=== PATIENT | female | born 1975 | race Caucasian/White ===

== ENCOUNTER 2023-05-25 08:52 | Emergency (ER) | payer BC, SELFPAY ==
[2023-05-25 08:56] VITALS: BP 143/57
--- NOTE | 2023-05-25 09:24 | ED.GENMED ---
Addendum entered and electronically signed by Edgar Heredia PA-C 05/28/23 10:17:
Patient's wound culture grew moderate E. coli. Resistant to Bactrim which patient was prescribed. I contacted the patient and she still notes she is having significant discomfort and recurring swelling. I did send a new prescription for Augmentin
to patient's pharmacy. She did make a follow-up visit with TEMPLATE LAYOUT WORKER but this is not for another 2 weeks. I did advise patient that if symptoms are not improved or she has any other concerns she is always welcome to present back to the emergency
department.
Original Note:
History of Present Illness
<JOHNNY Stuart - Last Filed: 05/25/23 13:55>
General
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
Source: patient
Exam Limitations: none
Time Seen by Provider: 05/25/23 09:06
Nursing documentation reviewed up to this point in time: agreed with
Travel History
Have you had any contact with someone who has COVID-19?: No
Do you have any symptoms of coronavirus? Fever > 100 degrees, chills, cough, shortness of breath, sore throat, loss of taste or smell, muscle aches, or headache?: No
History of Present Illness
History of Present Illness:
Patient 48-year-old female with history of MS, htn, alcohol abuse presents to the ER for evaluation. Patient complains of painful lump to the right of her vagina for the past 3 days. She denies any abdominal pain she is mildly nauseous. She
reports that she is not from this area but presently staying in a recovery house here in [place]. She has been sexually active for the past 7 months not with her and does ask for STD testing. She complains of mild white discharge but
not sure if it is her normal discharge. She has never had an STD. Her last menstrual period was 3 months ago. She reports she is starting to have irregular periods with her age. She does report that she had a lump similar to this at 20 which
did require drainage.
Review of Systems
<JOHNNY Stuart - Last Filed: 05/25/23 13:55>
Review of Systems
Allergies reviewed?: Yes
All Other Systems: ROS reviewed and negative except as documented in HPI and ROS
Constitutional: Reports no symptoms; Denies fever, fatigue or chills
EENT: Reports no symptoms
Respiratory: Reports no symptoms
Cardiac: Reports no symptoms
ABD/GI: Reports no symptoms; Denies nausea or vomiting
: Reports other (Painful lump to the right upper vagina); Denies dysuria or frequency
Musculoskeletal: Reports no symptoms
Skin: Reports no symptoms
Neurological: Reports no symptoms
Phy Exam
<JOHNNY Stuart - Last Filed: 05/25/23 13:55>
General Physical Exam
General Presentation: no apparent distress
General age: appears stated age
General Skin: warm and dry
General Habitus: normal
General Mental: alert
General Hydration: appears well hydrated
Genitourinary Exam Female
Exam Female: other (+ tender palpable lump to outer right labia )
Neurological Exam
Neurological Exam: alert and oriented x3
Musculoskeletal Exam
Musculoskeletal Exam: full ROM
Skin Exam
Skin Exam: normal color and warm/dry
Psychiatric Exam
Psychiatric Exam: normal mood/affect
Course
<JOHNNY Stuart - Last Filed: 05/25/23 13:55>
Orders/Labs/Results
Orders:
Orders
05/25/23 09:24
Test Result ONCE
05/25/23 10:12
HCG, Urine Qualitative Screen Urgent
Date Specimen was Collected: 05/25/23
Time Specimen was Collected: 10:09
Chlamydia/GC by PCR Urgent
HADLEY Source: Urine
Specimen Description:
Source:: URETHRA
Date Specimen was Collected: 05/25/23
Time Specimen was Collected: 10:09
05/25/23 11:07
Sulfamethox./Trimethoprim Ds [Bactrim Ds 800 mg/160 mg] 1 tablet PO NOW STA
05/25/23 11:20
Wound Culture [Wound/Abscess/Other Culture] Urgent
HADLEY Source: Abscess
Specimen Description:
Date Specimen was Collected: 05/25/23
Time Specimen was Collected: 11:15
Comment: vaginal
Vital Signs
Initial and Last Documented VS:
Initial Vital Signs
Temp Pulse Resp BP Pulse Ox
98.0 F 110 16 143/57 98
05/25/23 08:56 05/25/23 08:56 05/25/23 08:56 05/25/23 08:56 05/25/23 08:56
Last Documented Vital Signs
Temp Pulse Resp BP Pulse Ox
98.0 F 110 16 143/57 98
05/25/23 08:56 05/25/23 08:56 05/25/23 08:56 05/25/23 08:56 05/25/23 08:56
Field Consultant consulted with Physician
Name of Physician Consulted: Vini
<Kenneth Martini, DO - Last Filed: 05/25/23 11:03>
Orders/Labs/Results
Orders:
Orders
05/25/23 09:24
Test Result ONCE
05/25/23 10:12
HCG, Urine Qualitative Screen Urgent
Date Specimen was Collected: 05/25/23
Time Specimen was Collected: 10:09
Chlamydia/GC by PCR Urgent
HADLEY Source: Urine
Specimen Description:
Source:: URETHRA
Date Specimen was Collected: 05/25/23
Time Specimen was Collected: 10:09
05/25/23 11:07
Sulfamethox./Trimethoprim Ds [Bactrim Ds 800 mg/160 mg] 1 tablet PO NOW STA
05/25/23 11:20
Wound Culture [Wound/Abscess/Other Culture] Urgent
HADLEY Source: Abscess
Specimen Description:
Date Specimen was Collected: 05/25/23
Time Specimen was Collected: 11:15
Comment: vaginal
Vital Signs
Initial and Last Documented VS:
Initial Vital Signs
Temp Pulse Resp BP Pulse Ox
98.0 F 110 16 143/57 98
05/25/23 08:56 05/25/23 08:56 05/25/23 08:56 05/25/23 08:56 05/25/23 08:56
Last Documented Vital Signs
Temp Pulse Resp BP Pulse Ox
98.0 F 110 16 143/57 98
05/25/23 08:56 05/25/23 08:56 05/25/23 08:56 05/25/23 08:56 05/25/23 08:56
Procedures
<JOHNNY Stuart - Last Filed: 05/25/23 13:55>
Other
Indication for procedure:: cyst/abscess to right lateral labial region
Consent form signed: Yes
Additional Procedure:
Betadine prep , area was anesthetized with lidocaine 1% without #11 blade scapel used to incise area no ovious drainage however #18 gauge needle aspiration used to withdrawl approx 15 cm of purulent drainage
<JOHNNY Stuart - Last Filed: 05/25/23 13:55>
MDM/Problems Addressed
Differential Diagnosis Includes:
not limited to: abscess, bartholins
MDM/Problems Addressed:
48 yr old female presenting to the ER with complaints of painful lump to vaginal area. As discussed area was incised however ED physician was able to use an 18-gauge needle was used to do aspiration of approximately 15 mL of purulent drainage.
Patient with relief. This was sent for culture. Patient also wanted STD testing. STD testing for GC chlamydia negative here in the ER she present lives in a recovery house here in [place].
Patient with negative hCG. Patient denies any fever chills afebrile. Patient has significant relief after drainage. Patient was given first dose of Bactrim here in the ER will DC with warm compresses sitz bath's Bactrim and close outpatient
follow with TEMPLATE LAYOUT WORKER
<JOHNNY Stuart - Last Filed: 05/25/23 13:55>
*Critical Care Note
Total Time (30-74mins, 75-104mins- exclusive of procedures): Not Applicable
ED Attending Note
<JOHNNY Stuart - Last Filed: 05/25/23 13:55>
-
Portions of this chart may have been created with voice recognition software.� Occasional wrong word or��sound alike� substitutions may have occurred due to the inherent limitations of voice recognition software.
<Kenneth Martini DO - Last Filed: 05/25/23 11:03>
ED Attending Note
Patient seen and examined by attending physician: Yes
I performed the substantive portion of visit, reviewed & personally made and approve the management plan that is documented in note by myself or ITA.: Yes
ED Attending Note:
Fluctuant mass to the right labia. Small incision made by ASSISTANT OPERATOR and then aspirated by me. 13 cc of pus withdrawn. Little bit of concern as I would like to fully open this but would take a deep vaginal incision. For now lets hope that warm
compresses, antibiotics and needle aspiration are sufficient. Will refer to gynecology for follow-up
Discharge Plan
Departure
Patient Disposition: Home (Routine Discharge)
Date of Disposition: 05/25/23
Time of Disposition: 12:46
Patient with high blood pressure during this ER visit?: Yes
Condition: Fair
Covid-19: Not Applicable
Discharge Problem:
Abscess
Instructions: Abscess Incision and Drainage (DC), BLOOD PRESSURE
Prescriptions:
New
sulfamethoxazole-trimethoprim [Bactrim DS] 800-160 mg tablet
1 tab PO BID Qty: 14 0RF
Referrals:
Sugey Guerrero MD [Active] -
UNKNOWN - PT DOES,NOT KNOW [Family Provider] -
Activity Restrictions/Additional Instructions:
Antibiotic as directed For the next 7 days.
Hot water soaks hot compresses to affected area several times a day. Follow-up with TEMPLATE LAYOUT WORKER in the next several days.
return if any worsening of symptoms.
Interventions
Interventions:
*Risk Screen - Suicide Last Done: 05/25/23 10:39
*General Assessment Last Done: 05/25/23 10:39
*Neglect/Abuse Screening Last Done: 05/25/23 10:39
ED- Fall Risk Assessment Last Done: 05/25/23 10:39
*ED COVID-19 Vaccine History Last Done: 05/25/23 08:56
*Nursing Disposition Last Done: 05/25/23 12:57
ED-Female Genitourinary Assessment Last Done: 05/25/23 10:39
Discharge Date and Time
Discharge Date/Time: 05/25/23 13:01
[2023-05-25 10:27] LABS: HCG, Urine Qualitative Screen Negative
[2023-05-25] MEDS: BACTRIM DS 800 MG/160 MG 1 TABLET PO (11:23)
== END 2023-05-25 13:01 | disposition home or self-care (01) ==
LOC: EMR 08:52
PROVIDERS: Nurse Practitioner; EMERGENCY PHYSICIAN Emergency Medicine
DX: N76.4 Abscess of vulva (principal)
CPT/HCPCS: 99283; 56405; 81025; 87070; 87077; 87186; 87205; 87491; 87591

== ENCOUNTER 2023-05-28 11:18 | Emergency (ER) | payer BC, SELFPAY ==
[2023-05-28 11:21] VITALS: BP 127/73
[2023-05-28 11:34] LABS: % Basophils 0.4 % (0-2); % Eosinophils 1.6 % (0-6); % Immature Granulocytes 0.3 % (0-0.5); % Lymphocytes 33.3 % (20.5-51.1); % Monocytes 9.4 % (1.7-9.3); Absolute Basophils 0.1 10^3/uL (0-0.2); Absolute Eosinophils 0.2 10^3/uL (0-0.7); Absolute Monocytes 1.1 10^3/uL (0.1-0.6); Absolute Neutrophils 6.6 10^3/uL (1.4-6.5); Hematocrit 42.1 % (37.0-47.0); Hemoglobin 14.5 g/dL (12.0-16.0); Mean Corp Hgb Conc. 34.4 g/dL (33.0-37.0); Mean Corpuscular Volume 84.2 fL (81.0-99.0); Mean Platelet Volume 9.2 fL (7.4-10.4); Nucleated Red Blood Cells % 0.3 %; Platelet Count 277 10^3/uL (130-400); Red Cell Dist. Width 13.3 % (11.5-14.5)
[2023-05-28 11:51] LABS: HCG, Serum Qualitative Screen Negative
[2023-05-28 11:54] LABS: ALT (SGPT) 49 U/L (0-35); AST (SGOT) 60 U/L (14-36); Albumin 4.3 g/dl (3.5-5.0); Alkaline Phosphatase 136 U/L (38-126); Blood Urea Nitrogen 16 mg/dl (7-17); Calcium 9.8 mg/dl (8.4-10.2); Carbon Dioxide 25 mmol/L (22-30); Chloride 101 mmol/L (98-107); Glucose 108 mg/dl (70-99); Potassium 5.1 mmol/L (3.5-5.1); Sodium 136 mmol/L (135-145); Total Bilirubin 0.4 mg/dl (0.2-1.3); Total Protein 7.2 g/dl (6.3-8.2); eGFR > 60.00
--- NOTE | 2023-05-28 14:28 | ED.GENMED ---
History of Present Illness
General
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
Source: patient and records
Time Seen by Provider: 05/28/23 14:06
Travel History
Have you had any contact with someone who has COVID-19?: No
Do you have any symptoms of coronavirus? Fever > 100 degrees, chills, cough, shortness of breath, sore throat, loss of taste or smell, muscle aches, or headache?: No
History of Present Illness
History of Present Illness:
48-year-old female with past medical history of hypertension, MS, alcohol abuse, currently at a sober living facility presenting back to the emergency department after being evaluated 3 days ago for a right vaginal abscess, started Bactrim but had
received a call from earlier today that the antibiotic was not sufficient for the infection that she had and was changed to a different antibiotic but was unable to fruit or nut picker the prescription for the new antibiotic today; now noting worse pain within
the right vaginal/perineal region prompting her to come back for further evaluation. She denies any gross, chills, rigors. She had been taking the Bactrim as prescribed. Denies any history of similar. No other concerns at this time.
Past History
Past History
ED Past Medical History: HTN, Other (MS) and Other (Alcohol abuse)
ED Past Surgical History: None
Social History
Tobacco: Non-smoker
Alcohol: Chronic alcoholic
Drug: None
Personal:
Living: other (Currently living at a sober living facility)
Review of Systems
Review of Systems
All Other Systems: ROS reviewed and negative except as documented in HPI and ROS
Phy Exam
Physical Exam
Physical Exam:
GENERAL: Alert , in no apparent distress
EYE: conjunctiva clear
Head: Normocephalic atraumatic
NECK: Supple,
ENT: mmm.
LUNGS: no acute respiratory distress
NEUROLOGICAL: Alert and oriented
SKIN: Warm and dry, exam was chaperoned by ED [place] Montes: Patient does have a approximately 1 cm indurated nonerythematous abscess without any fluctuance just lateral to the right labia majora. I do not palpate any fluctuance within the labia minora
or within the vaginal canal. There is no vaginal discharge. Patient did note significant comfort with palpation over the area of induration.
MUSCULOSKELETAL: well perfused.
PSYCH: Normal and appropriate interaction.
Scores
Heart Failure Risk
Heart Failure Risk Score: Not Applicable
Heart Score for Chest Pain Patients
STEMI patient?: Not applicable
Withdrawal Assessment of Alcohol
Withdrawal Assessment Completed?: Not applicable
Course
Orders/Labs/Results
Orders:
Orders
05/28/23 11:24
Test Result ONCE
05/28/23 11:28
Complete Blood Count/With Diff Urgent
Comprehensive Metabolic Panel Urgent
HCG, Serum Qualitative Screen Urgent
05/28/23 15:38
Amoxicillin 875 mg/Clav 125 mg [Augmentin 875 mg/125 mg] 1 tablet PO NOW STA
Ibuprofen [Motrin] 600 mg PO NOW STA
Bedside Pathology Routine
Surgeon: Dr. Yepez
Specimen Submitted: Vaginal Tissue
Pre-Operative Diagnosis: bartholins cyst
Operative Procedure: Incision and Drainage
Abnormal Lab Results
05/28/23
11:28
WBC 12.0 H 10^3/uL
(4.8-10.8)
Absolute Neuts (auto) 6.6 H 10^3/uL
(1.4-6.5)
Absolute Lymphs (auto) 4.0 H 10^3/uL
(1.2-3.4)
Absolute Monos (auto) 1.1 H 10^3/uL
(0.1-0.6)
Monocytes % 9.4 H %
(1.7-9.3)
Glucose 108 H mg/dl
(70-99)
AST 60 H U/L
(14-36)
ALT 49 H U/L
(0-35)
Alkaline Phosphatase 136 H U/L
(38-126)
05/28/23 11:28
05/28/23 11:28
Vital Signs
Initial and Last Documented VS:
Initial Vital Signs
Temp Pulse Resp BP Pulse Ox
98.5 F 99 18 127/73 99
05/28/23 11:21 05/28/23 11:21 05/28/23 11:21 05/28/23 11:21 05/28/23 11:21
Last Documented Vital Signs
Temp Pulse Resp BP Pulse Ox
98.5 F 99 18 127/73 99
05/28/23 11:21 05/28/23 11:21 05/28/23 11:21 05/28/23 11:21 05/28/23 11:21
MDM/Problems Addressed
Differential Diagnosis Includes:
Vaginal abscess, cellulitis, no concern for STI given negative STI panel from 3 days ago
MDM/Problems Addressed:
48-year-old female present emergency department for evaluation of a right lower vaginal abscess, had incision and drainage done 3 days ago and was started on Bactrim however Bactrim was unfortunately resistant to her E. coli infection. Lab work had
been initiated in triage which does reveal a leukocytosis of 12,000. Will attempt to discuss case with HUMAN DEVELOPMENT PROFESSOR to see if they would be able to come and evaluate the patient. Reassessment following
*Pulse Oximetry
Patient hypoxic: no
*Critical Care Note
Total Time (30-74mins, 75-104mins- exclusive of procedures): Not Applicable
Patient Management
Discussion with other providers: Electrical Appliance Mechanic
Escalation/DeEscalation of care consider admission/obs:
1420 p.m.: Notified on-call HUMAN DEVELOPMENT PROFESSOR, Dr. Yepez, who will come to the emergency department to evaluate the patient.
1530 p.m. HUMAN DEVELOPMENT PROFESSOR finished bedside procedure. Large amount of fluid collection was obtained. They did obtain specimen of the vaginal wall to be sent for biopsy. This was sent from the ER. Patient will continue her Augmentin that was prescribed
earlier today. Motrin as needed for pain. She has arranged follow-up in office with HUMAN DEVELOPMENT PROFESSOR in a week and a half. Otherwise stable for discharge home.
ED Attending Note
-
Portions of this chart may have been created with voice recognition software.� Occasional wrong word or��sound alike� substitutions may have occurred due to the inherent limitations of voice recognition software.
Discharge Plan
Departure
Patient Disposition: Home (Routine Discharge)
Date of Disposition: 05/28/23
Time of Disposition: 15:32
Patient with high blood pressure during this ER visit?: No
Discharge Problem:
Abscess, vagina
Instructions: Abscess Incision and Drainage (DC)
Prescriptions:
No Action
sulfamethoxazole-trimethoprim [Bactrim DS] 800-160 mg tablet
1 tab PO BID Qty: 14 0RF
amoxicillin-pot clavulanate 875-125 mg tablet
1 tab PO BID Qty: 20 0RF
Referrals:
Sugey Guerrero MD [Active] -
Interventions
Interventions:
*Risk Screen - Suicide Last Done: 05/28/23 11:21
*General Assessment Last Done: 05/28/23 11:21
*Neglect/Abuse Screening Last Done: 05/28/23 11:21
ED-Female Genitourinary Assessment Last Done: 05/28/23 14:24
--- NOTE | 2023-05-28 15:38 | CS.OBGYN ---
Documented by User: Doug Arrietauja, [facility] 05/28/23 16:36
Consult Summary - REED OR WIND INSTRUMENT TUNER
-
HPI:
A 48 y/o female presents to the ED for a follow up on a bartholin cyst abscess, which was drained on 05/24/23. During the previous visit, the affected area was treated with an I&D and a course of Bactrim. Additionally, the cyst was cultured
during this encounter, which came back positive for e. coli, resistant to Bactrim. Patient was not switched to a new abx, since results were received today. Patient returns to the ED today for recurrent tenderness and edema of the affected area. She
states that she is unable to sit without having discomfort, affecting her normal daily activities. Patient admits to hot flashes and states her LMP was over 3 months ago. She is sexually active and does not use control. Patient denies any
draining from the site, fevers, chills.
ROS:Positive as above, otherwise negative.
Meds: Patient unsure of name. She has one medication for MS and 2 antihypertensive medications.
Allergies: Prednisone
PMH: MS, HTN, and Alcohol misuse
PSH: D&C x 2.
OB hx: , SAB X 2 term x 2
FABRIC FINISHER hx: Patient denies herpes, chlamydia, and gonorrhea. She states that she has a hx of abnormal paps when she was much younger. Last pap was normal.
Social hx: Patient states she has not had an alcoholic drink for 1 month and 3 weeks. She admits to occasional cigarette use. Patient denies any illicit drug use. Currently living in a sober house.
FH: Non-contributory
Physical Exam:
VS:
BP: 127/73 mmHg, automatic cuff
Pulse 99 beats per minute
Resp: 18 breaths per minute
Temp: 98.5 F, oral
O2 Sat: 99% on room air
GA: Patient is alert and oriented x 3. She seems to be in acute mild distress due to pain. Patient is cooperative and pleasant.
: ____
Labs and Diagnostics Reviewed:
05/25/23 -- Urine HCG -- Negative
05/25/23 -- Abscess Wound Culture -- (+) E. Coli
05/25/23 -- Urine Chlamydia trachomatis (PCR) -- Negative
05/25/23 -- Urine Neisseria gonorrhoeae (PCR) -- Negative
05/28/23:
Compr Metabolic - - -
Glucose - 108 - H - 70-99 mg/dl
Urea Nitrogen - 16 - - 7-17 mg/dl
Creatinine - 0.8 - - 0.6-1.0 mg/dL
eGFR - > 60.00 - -
Sodium - 136 - - 135-145 mmol/L
Potassium - 5.1 - - 3.5-5.1 mmol/L
Chloride - 101 - - 98-107 mmol/L
Carbon Dioxide - 25 - - 22-30 mmol/L
Alk Phosphatase - 136 - H - 38-126 U/L
Calcium - 9.8 - - 8.4-10.2 mg/dl
Total Protein - 7.2 - - 6.3-8.2 g/dl
Albumin - 4.3 - - 3.5-5.0 g/dl
Total Bilirubin - 0.4 - - 0.2-1.3 mg/dl
AST (SGOT) - 60 - H - 14-36 U/L
ALT (SGPT) - 49 - H - 0-35 U/L
HCG Qual, Serum - Negative - -
A/P:
Bartholin Cyst Abscess
I&D of abscess
Placement of ____ Drain
Amoxicillin-pot clavulanate 1 tab PO BID x 10 days
Discussed that the patient might notice drainage/discharge, which is expected.
Patient encouraged to use sitz baths, cold packs, and/or acetaminophen/ibuprofen.
Discussed that patient should return to the ED if she has a fever and/or if the area becomes warm to touch and edematous
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

Documented by User: Kamila Yepez DO 05/28/23 17:01
Consult Summary - REED OR WIND INSTRUMENT TUNER
-
HPI:
48yo presents to the ED for a follow up on a bartholin cyst abscess, which was drained in the ER on 05/24/23. During the previous visit, the affected area was treated with an I&D and she was given a course of Bactrim. The cyst was
cultured during that encounter, which came back positive for e. coli, resistant to Bactrim. Patient was not switched to a new abx yet, since results were received today. Patient returns to the ED today for recurrent tenderness and edema of the
affected area. She states that she is unable to sit without having discomfort, affecting her normal daily activities. Patient admits to hot flashes and states her LMP was over 3 months ago. She is sexually active and does not use control.
Patient denies any draining from the site, fevers, chills.
ROS:Positive as above, otherwise negative.
Meds: Patient unsure of name. She has one medication for MS and 2 antihypertensive medications.
Allergies: Prednisone
PMH: MS, HTN, and Alcohol misuse
PSH: D&C x 2.
OB hx: , SAB X 2 term x 2
FABRIC FINISHER hx: Patient denies herpes, chlamydia, and gonorrhea. She states that she has a hx of abnormal paps when she was much younger. Last pap was normal.
Social hx: H/o alcohol misuse, s/p recent rehab. Patient states she has not had an alcoholic drink for 1 month and 3 weeks. She admits to occasional cigarette use. Patient denies any illicit drug use. Currently living in a sober house.
FH: Non-contributory
Physical Exam:
VS:
BP: 127/73 mmHg, automatic cuff
Pulse 99 beats per minute
Resp: 18 breaths per minute
Temp: 98.5 F, oral
O2 Sat: 99% on room air
Gen: Patient is alert and oriented x 3. NAD
Psych: Patient is cooperative and pleasant
: 4 x5 cm right Bartholin abscess, TTP, previous I&D site 5mm seen on external labia majora, not draining
PROCEDURE NOTE: Patient verbally counseled and consented for I&D of Bartholin abscess, biopsy of Bartholin cyst and placement of word catheter. Area was cleansed with iodine. 5ml 1% Lidocaine with epi injected locally. 3mm skin incision made with
scalpel #11 blade and copious purulent discharge was drained from the abscess. Saline flush used to rinse out the abscess cavity. Edge of the cyst was elevated with forceps and a small biopsy was obtained from the cyst wall with scissors and sent
for specimen. Word catheter placed into abscess cavity, balloon inflated with saline and catheter tip tucked inside the vagina. Patient tolerated procedure well.
A female corporate administrator was present for the exam and procedure.
Labs and Diagnostics Reviewed:
05/25/23 -- Urine HCG -- Negative
05/25/23 -- Abscess Wound Culture -- (+) E. Coli , resistent to Bactrim
05/25/23 -- Urine Chlamydia trachomatis (PCR) -- Negative
05/25/23 -- Urine Neisseria gonorrhoeae (PCR) -- Negative
05/28/23:
CBC/Diff - - -
WBC - 12.0 - H - 4.8-10.8 10^3/uL
RBC - 5.00 - - 4.20-5.40 10^6/uL
Hgb - 14.5 - - 12.0-16.0 g/dL
Hct - 42.1 - - 37.0-47.0 %
MCV - 84.2 - - 81.0-99.0 fL
MCH - 29.0 - - 27.0-31.0 pg
MCHC - 34.4 - - 33.0-37.0 g/dL
RDW - 13.3 - - 11.5-14.5 %
PLT - 277 - - 130-400 10^3/uL
MPV - 9.2 - - 7.4-10.4 fL
% Neutrophils - 55.0 - - 42.2-75.2 %
% Lymphocytes - 33.3 - - 20.5-51.1 %
% Monocytes - 9.4 - H - 1.7-9.3 %
% Eosinophils - 1.6 - - 0-6 %
% Basophils - 0.4 - - 0-2 %
% Immature Gran - 0.3 - - 0-0.5 %
- % Immature Granulocytes includes metamyelocytes, myelocytes
- and promyelocytes.
Abs Neutro - 6.6 - H - 1.4-6.5 10^3/uL
Abs Lymphs - 4.0 - H - 1.2-3.4 10^3/uL
Abs Monos - 1.1 - H - 0.1-0.6 10^3/uL
Abs Eos - 0.2 - - 0-0.7 10^3/uL
Abs Basos - 0.1 - - 0-0.2 10^3/uL
Abs Imm Gran - 0.0 - - 0-0.05 10^3/uL
% Nucleated RBC - 0.3 - - %
Compr Metabolic - - -
Glucose - 108 - H - 70-99 mg/dl
Urea Nitrogen - 16 - - 7-17 mg/dl
Creatinine - 0.8 - - 0.6-1.0 mg/dL
eGFR - > 60.00 - -
Sodium - 136 - - 135-145 mmol/L
Potassium - 5.1 - - 3.5-5.1 mmol/L
Chloride - 101 - - 98-107 mmol/L
Carbon Dioxide - 25 - - 22-30 mmol/L
Alk Phosphatase - 136 - H - 38-126 U/L
Calcium - 9.8 - - 8.4-10.2 mg/dl
Total Protein - 7.2 - - 6.3-8.2 g/dl
Albumin - 4.3 - - 3.5-5.0 g/dl
Total Bilirubin - 0.4 - - 0.2-1.3 mg/dl
AST (SGOT) - 60 - H - 14-36 U/L
ALT (SGPT) - 49 - H - 0-35 U/L
HCG Qual, Serum - Negative - -
A/P:
Bartholin Cyst Abscess, now s/p I&D and word catheter placement.
Biopsy taken of cyst wall d/t age >45yo
Augmentin PO BID x 10 days
Discussed that the patient might notice drainage/discharge, which is expected.
Patient encouraged to use sitz baths, cold packs, and/or acetaminophen/ibuprofen.
Discussed that patient should return to the ED if she has a fever and/or if the area becomes warm to touch and edematous
Patient will f/u with rn school in 2 weeks [address] Dr[address] Guerrero. Can discuss biopsy results at that time
45mins spent caring for this patient
Karolyn Yepez, DO
[2023-05-28] MEDS: AUGMENTIN 875 MG/125 MG 1 TABLET PO (15:57)
[2023-05-28] MEDS: MOTRIN 600 MG PO (15:57)
== END 2023-05-28 16:46 | disposition home or self-care (01) ==
LOC: EMR 11:18
PROVIDERS: Student in an Organized Health Care Education/Training Program; EMERGENCY PHYSICIAN Emergency Medicine; OTHER PHYSICIAN Obstetrics & Gynecology
DX: N75.1 Abscess of Bartholin's gland (principal); F17.210 Nicotine dependence, cigarettes, uncomplicated; I10 Essential (primary) hypertension
CPT/HCPCS: 88304; 88305; 56420; 80053; 84703; 85025; 99283

== ENCOUNTER → 2023-12-26 08:40 | Outpatient (REF) | payer BC, SELFPAY | LOC: MRI 08:40 | PROVIDERS: ATTENDING PHYSICIAN Psychiatry & Neurology Neurology | DX: R29.898 Other symptoms and signs involving the musculoskeletal system (principal) | CPT/HCPCS: 72158 ==